=== PATIENT | female | born 1975 | race Asian ===

== ENCOUNTER 2018-01-04 00:10 | Inpatient (IN) | payer SELFPAY ==
[~2018-01-04] VITALS: Ht 63 cm; Wt 72.1 kg
[2018-01-04] MEDS ORDERED: LACTATED RINGERS 1,000 ML IV SCH (00:36)
[2018-01-04] MEDS ORDERED: OXYTOCIN 10 UNITS/ML VIAL IM SCH (00:40)
[2018-01-04] MEDS ORDERED: OXYTOCIN 20 UNITS in LACTATED RINGERS 1,000 ML IV SCH (00:40)
[2018-01-04] MEDS ORDERED: LACTATED RINGERS 500 ML IV ONE (00:40)
[2018-01-04] MEDS ORDERED: MISOPROSTOL 25 MCG TAB VG ONE (00:45)
[2018-01-04 00:48] VITALS: BP 129/69
[2018-01-04 01:33] LABS: BASOPHILS % (AUTO) 0.3 % (0.0-2.0); EOSINOPHILS # (AUTO) 0.2 K/uL (0-0.4); EOSINOPHILS % (AUTO) 2.3 % (0.0-4.0); HEMATOCRIT 35.8 % (36-48); HEMOGLOBIN 12.1 g/dL (12.0-16.0); LYMPHOCYTES # (AUTO) 1.6 K/uL (2.5-16.5); LYMPHOCYTES % (AUTO) 16.1 % (20.5-51.1); MEAN CORPUSCULAR HEMOGLOBIN 30 pg (27-31); MEAN CORPUSCULAR HGB CONC 34 g/dL (33-37); MEAN CORPUSCULAR VOLUME 88.7 fL (80-94); MONOCYTES # (AUTO) 0.5 K/uL (0.8-1.0); MONOCYTES % (AUTO) 5.5 % (1.7-9.3); NEUTROPHILS # (AUTO) 7.4 K/uL (1.8-7.7); NEUTROPHILS % (AUTO) 75.8 % (42.2-75.2); PLATELET COUNT (AUTO) 178 K/uL (140-450); RED BLOOD CELL COUNT(AUTO) 4.03 MIL/uL (4.20-5.40); RED CELL DISTRIBUTION WIDTH 13.3 % (11.6-13.7); WHITE BLOOD COUNT (AUTO) 9.7 K/uL (4.8-10.8)
[2018-01-04 01:35] LABS: APPEARANCE,URINE CLEAR (CLEAR); BILIRUBIN,URINE NEGATIVE (NEGATIVE); BLOOD, URINE TRACE-L (NEGATIVE); COLOR,URINE YELLOW (YELLOW); LEUKOCYTE ESTERASE ,URINE TRACE (NEGATIVE); NITRITE, URINE NEGATIVE (NEGATIVE); PH,URINE 6.5 (5.0-9.0); UGLUCOSE NEGATIVE (NEGATIVE)
[2018-01-04 01:52] LABS: RBC,URINE 0-5 (RARE) /HPF (0-5); WBC,URINE 0-5 (RARE) /HPF (0-5)
[2018-01-04] MEDS ORDERED: BUPIVACAINE 0.125%/NS PREMIX 250 ML ONE (02:05)
[2018-01-04] MEDS ORDERED: OXYTOCIN 20 UNITS/LR PREMIX 1,000 ML IV ONE (02:41)
[2018-01-04] MEDS ORDERED: BUPIVACAINE 0.125%/NS PREMIX 250 ML EPI SCH (03:00)
[2018-01-04] MEDS ORDERED: FERR-252 PO (03:19)
[2018-01-04] MEDS ORDERED: HYDROcodone/APAP 5/325 MG 1 TAB TAB PO PRN (06:10)
[2018-01-04] MEDS ORDERED: OXYTOCIN 10 UNITS/ML VIAL IM PRN (06:10)
[2018-01-04] MEDS ORDERED: oxyCODONE/APAP 5/325 MG 1 TAB TAB PO PRN (06:10)
[2018-01-04] MEDS ORDERED: BENZOCAINE/MENTHOL 20%-0.5% 60 GM CAN TP PRN (06:10)
[2018-01-04] MEDS ORDERED: METHYLERGONOVINE 0.2 MG/ML AMP IM PRN (06:10)
[2018-01-04] MEDS ORDERED: TEMAZEPAM 15 MG CAP PO PRN (06:10)
[2018-01-04] MEDS ORDERED: MEASLES, MUMPS, AND RUBELLA 1 VIAL SQVAC PRN (06:10)
[2018-01-04] MEDS ORDERED: OXYTOCIN 10 UNITS/ML VIAL ONE (07:23)
--- NOTE | 2018-01-04 08:12 | NUR ---
PATIENT HAS BEEN SCREENED AND CATEGORIZED LOW NUTRITION RISK. PATIENT WILL BE SEEN WITHIN 7 DAYS OF ADMISSION. 01/11/18 KOLE WITT MBA, RD
[2018-01-04] MEDS: IBUPROFEN 800 MG TAB PO PRN (12:07)
[2018-01-04] MEDS ORDERED: DOCUSATE SOD/SENNA 50/8.6 MG 1 TAB PO SCH (21:00)
[2018-01-05 08:52] LABS: HEMOGLOBIN 13.1 g/dL (12.0-16.0)
[2018-01-05 18:44] LABS: RAPID PLASMA REAGIN NON-REACTIVE (Non Reactiv)
[2018-01-06] MEDS ORDERED: MISOPROSTOL 25 MCG TAB ONE (03:48)
[2018-01-06] MEDS: IBUPROFEN 800 MG TAB PO PRN (03:58)
== END 2018-01-06 14:15 | disposition home or self-care (01) | DRG 775 ==
LOC: MLD 00:10 → MFCC 09:45
PROVIDERS: ADMIT Obstetrics & Gynecology; ATTEND Obstetrics & Gynecology
PROC: 10E0XZZ Delivery of Products of Conception, External Approach (ICD-10-PCS; principal; 2018-01-04)
PROC: 10907ZC Drainage of Amniotic Fluid, Therapeutic from Products of Conception, Via Natural or Artificial Opening (ICD-10-PCS; 2018-01-04)
PROC: 0W8NXZZ Division of Female Perineum, External Approach (ICD-10-PCS; 2018-01-04)
PROC: 3E0R3BZ Introduction of Anesthetic Agent into Spinal Canal, Percutaneous Approach (ICD-10-PCS; 2018-01-04)
PROC: 00HU33Z Insertion of Infusion Device into Spinal Canal, Percutaneous Approach (ICD-10-PCS; 2018-01-04)
PROC: 3E0234Z Introduction of Serum, Toxoid and Vaccine into Muscle, Percutaneous Approach (ICD-10-PCS; 2018-01-05)
DX: O80 Encounter for full-term uncomplicated delivery (principal); Z23 Encounter for immunization; Z3A.39 39 weeks gestation of pregnancy; Z37.0 Single live birth
CPT/HCPCS: 36415; 51702; 59409; 81001; 85018; 85025; 86592; 86886; 86900; 86901; 90715; J2590; J3490; J7120